=== PATIENT | female | born 1940 | race Caucasian/White ===

== ENCOUNTER 2020-07-03 07:59 | Day surgery (SDC) | payer OTHER ==
[2020-07-02 10:13] VITALS: BMI 28.3
[2020-07-03 09:55] VITALS: BP 111/59; PULSE 57; TEMP 98
== END 2020-07-03 09:58 | disposition home or self-care (01) ==
LOC: FASU-ENDO 07:59
PROVIDERS: ATTEND Internal Medicine Gastroenterology
PROC: 0DJD8ZZ Inspection of Lower Intestinal Tract, Via Natural or Artificial Opening Endoscopic (ICD-10-PCS; principal; 2020-07-03 08:51)
DX: K57.30 Diverticulosis of large intestine without perforation or abscess without bleeding (principal); Z86.010 Personal history of colon polyps; Z83.71 Family history of colonic polyps

== ENCOUNTER 2022-08-10 00:11 | Emergency (ER) | payer OTHER ==
[2022-08-10 00:17] VITALS: BP 147/88; PULSE 80; RESP 18; TEMP 99; BMI 29.2
[2022-08-10] MEDS ORDERED: SODIUM CHLORIDE 0.9% 500 ML INFUS.BAG IV ONE (00:29)
[2022-08-10 01:24] LABS: HEMATOCRIT 46.8 % (32.4-45.2); HEMOGLOBIN 16.1 GM/dL (10.7-15.3); MCH 32.5 pg (25.7-33.7); MCHC 34.4 g/dl (32.0-36.0); MEAN CELL VOLUME 94.3 fl (80-96); MEAN PLT VOLUME 8.9 fl (7.5-11.1); PLATELET COUNT 186 10^3/uL (134-434); RBC 4.96 M/mm3 (3.60-5.2); RDW 13.5 % (11.6-15.6); WHITE BLOOD COUNT 8.6 K/mm3 (4.0-10.0)
[2022-08-10 01:39] LABS: VENOUS BASE EXCESS 1.3 mmol/L (-2-2); VENOUS O2 SATURATION 47.7 % (70-80); VENOUS PCO2 45.6 mmHg (38-52); VENOUS PH 7.388 (7.310-7.410)
[2022-08-10 01:46] LABS: ALBUMIN 3.6 g/dl (3.4-5.0); BLOOD UREA NITROGEN 13.3 mg/dL (7-18); CALCIUM 8.9 mg/dL (8.5-10.1)
[2022-08-10 01:48] LABS: CREATININE 0.8 mg/dL (0.55-1.3)
[2022-08-10 01:50] LABS: BILIRUBIN,TOTAL 1.3 mg/dL (0.2-1); TOT PROT 7.6 g/dl (6.4-8.2)
[2022-08-10] MEDS ORDERED: guaiFENesin/D-METHORPHAN HB 10 ML UNIT-DOSE CUPS ONE (02:12)
[2022-08-10] MEDS ORDERED: guaiFENesin/D-METHORPHAN HB 10 ML UNIT-DOSE CUPS PO ONE (02:12)
== END 2022-08-10 02:23 | disposition home or self-care (01) ==
LOC: FER 00:11
DX: U07.1 COVID-19 (principal)
CPT/HCPCS: 0241U-QW; 36415; 71045-TC-FY; 80053; 82550; 82803; 83605; 84484; 85027; 87040; 93005; 99285-25

== ENCOUNTER 2023-08-09 07:48 | Day surgery (SDC) | payer OTHER ==
[2023-08-05 09:17] VITALS: BMI 27.4
[2023-08-09 09:37] VITALS: RESP 18; TEMP 97.9
[2023-08-09 10:21] VITALS: BP 138/89; PULSE 84
== END 2023-08-09 10:23 | disposition home or self-care (01) ==
LOC: FASU-ENDO 07:48
PROVIDERS: ATTEND Internal Medicine Gastroenterology
PROC: 0DB78ZX Excision of Stomach, Pylorus, Via Natural or Artificial Opening Endoscopic, Diagnostic (ICD-10-PCS; 2023-08-09)
PROC: 0DB68ZX Excision of Stomach, Via Natural or Artificial Opening Endoscopic, Diagnostic (ICD-10-PCS; principal; 2023-08-09 09:18)
DX: R13.10 Dysphagia, unspecified (principal); K29.50 Unspecified chronic gastritis without bleeding; K22.5 Diverticulum of esophagus, acquired; K57.10 Diverticulosis of small intestine without perforation or abscess without bleeding; K44.9 Diaphragmatic hernia without obstruction or gangrene
CPT/HCPCS: 88305-TC; 88342-TC

== ENCOUNTER 2024-01-15 00:30 | Emergency (ER) | payer OTHER ==
[2024-01-15 00:47] VITALS: BP 173/98; PULSE 69; RESP 18; TEMP 98.3; BMI 27.6
[2024-01-15] MEDS ORDERED: ONDANSETRON 4 MG/2 ML VIAL ONE (01:30)
[2024-01-15] MEDS: ONDANSETRON 4 MG/2 ML VIAL IVPUSH ONE (01:38)
[2024-01-15] MEDS: SODIUM CHLORIDE 1,000 ML IV ONE (01:38)
[2024-01-15 02:16] LABS: URINE APPEARANCE CLEAR; URINE BILIRUBIN NEGATIVE (NEGATIVE); URINE COLOR YELLOW; URINE GLUCOSE (UA) NEGATIVE (NEGATIVE); URINE KETONE NEGATIVE (NEGATIVE); URINE LEUK ESTERASE NEGATIVE (NEGATIVE); URINE NITRITE NEGATIVE (NEGATIVE); URINE PROTEIN NEGATIVE (NEGATIVE); URINE UROBILINOGEN 0.2 mg/dL (0.2-1.0)
[2024-01-15 02:26] LABS: HEMATOCRIT 46.8 % (32.4-45.2); HEMOGLOBIN 16.2 GM/dL (10.7-15.3); MCH 34.1 pg (25.7-33.7); MCHC 34.7 g/dl (32.0-36.0); MEAN PLT VOLUME 8.9 fl (7.5-11.1); PLATELET COUNT 188 10^3/uL (134-434); RBC 4.77 M/mm3 (3.60-5.2); RDW 13.3 % (11.6-15.6); WHITE BLOOD COUNT 11.8 K/mm3 (4.0-10.0)
[2024-01-15 02:30] LABS: POTASSIUM 3.8 mmol/L (3.5-5.1)
[2024-01-15 02:32] LABS: ALBUMIN 3.5 g/dl (3.4-5.0); BLOOD UREA NITROGEN 14.4 mg/dL (7-18); CALCIUM 8.9 mg/dL (8.5-10.1); MAGNESIUM 1.7 mg/dL (1.8-2.4)
[2024-01-15 02:36] LABS: BILIRUBIN,TOTAL 1.3 mg/dL (0.2-1); CREATININE 0.8 mg/dL (0.55-1.3); TOT PROT 6.8 g/dl (6.4-8.2)
== END 2024-01-15 02:56 | disposition home or self-care (01) ==
LOC: FER 00:30
PROC: 3E033GC Introduction of Other Therapeutic Substance into Peripheral Vein, Percutaneous Approach (ICD-10-PCS; principal; 2024-01-15)
PROC: 3E0337Z Introduction of Electrolytic and Water Balance Substance into Peripheral Vein, Percutaneous Approach (ICD-10-PCS; 2024-01-15)
DX: R11.2 Nausea with vomiting, unspecified (principal); R05.9 Cough, unspecified; Z20.822 Contact with and (suspected) exposure to COVID-19
CPT/HCPCS: 0241U-QW; 36415; 71045-TC-FY; 80053; 81003; 82550; 83735; 84484; 85027; 93005; 99285-25